=== PATIENT | male | born 1960 | race Caucasian/White ===

== ENCOUNTER 2016-09-21 18:02 | Emergency (ER) | payer OTHER, BC | END 2016-09-21 18:55 | disposition home or self-care (01) | LOC: ER 18:02 | DX: S19.9XXA Unspecified injury of neck, initial encounter (principal); S39.92XA Unspecified injury of lower back, initial encounter; Z88.8 Allergy status to other drugs, medicaments and biological substances; V89.9XXA Person injured in unspecified vehicle accident, initial encounter | CPT/HCPCS: 72040; 72100; 99284 ==